=== PATIENT | female | born 1980 | race Two or more races ===

== ENCOUNTER 2022-09-19 10:26 | Outpatient (OUT) | payer OTHER, SELFPAY ==
--- NOTE | 2022-09-19 10:43 | CT_ITS ---
[address] [address] Patient Name: ESTEBAN LAMB MRN: [id number] date: 1980 Sex: F Assigned Patient Location: CT Current Patient Location: CT Accession/Order Number: [id number] Exam Date: 09/19/2022 11:03 Report Date: 09/19/2022 16:25 At the request of: MOHINDER RIOS Procedure: CT abdomen pelvis wo/w con EXAMINATION: CT abdomen pelvis wo/w con HISTORY: Gross Hematuria R31.0 COMPARISON: CT abdomen pelvis 04/07/2019 TECHNIQUE: Axial, Coronal, and Sagittal images were obtained without and/or with IV contrast as indicated by examination type. Dose reduction techniques were achieved by using automated exposure control and/or adjustment of mA and/or kV according to patient size and/or use of iterative reconstruction technique. FINDINGS: LUNG BASES: No visible pulmonary or pleural disease. LIVER: No enlargement, atrophy, suspicious density, or significant focal lesion. BILIARY: No dilatation or calcification. PANCREAS: No lesion, fluid collection, or abnormal duct dilatation. SPLEEN: No enlargement or focal lesion. ADRENALS: No mass or enlargement. KIDNEYS: No mass, obstruction, or calcification. BOWEL/MESENTERY: No visible mass, obstruction, or bowel wall thickening. AORTA/VASCULAR: No aneurysm or dissection. RETROPERITONEUM: No mass or adenopathy. LYMPH NODES: No adenopathy. URINARY BLADDER: No visible focal wall thickening, lesion, or calculus. PELVIC ORGANS: No visible mass. Pelvic organs appropriate for patient age. ABDOMINAL WALL: No mass or hernia. BONES: No bony lesion or fracture. OTHER: Negative. CT/CT abdomen pelvis wo/w con IMPRESSION: 1. No urinary tract calculi, mass, obstructive uropathy, or urinary bladder wall thickening to account for patient's symptoms. Electronically authenticated by: LAURENCE BRITO Date: 09/19/2022 16:25
== END 2022-09-19 10:27 | disposition home or self-care (01) ==
LOC: CT 10:30
PROVIDERS: Visit Provider Urology
DX: R31.0 Gross hematuria (principal)
CPT/HCPCS: 74178; Q9967

== ENCOUNTER 2023-11-21 12:57 | Outpatient (RCR) | payer OTHER, SELFPAY | END 2023-11-22 09:06 | disposition home or self-care (01) | LOC: PT 12:57 | PROVIDERS: Visit Provider Nurse Practitioner Adult Health | DX: M50.30 Other cervical disc degeneration, unspecified cervical region (principal); M54.81 Occipital neuralgia | CPT/HCPCS: 97110; 97140; 97162 ==